=== PATIENT | male | born 1985 | race Caucasian/White ===

== ENCOUNTER → 2020-07-06 16:07 | Outpatient (CLI) | payer BC, SELFPAY ==
--- NOTE | ~2020-07-06 | MR_ITS ---
EXAMINATION: MR shoulder RT wo con DATE: 07/06/2020 17:20 INDICATION: Right shoulder pain. TECHNIQUE: Magnetic resonance imaging (MRI) of the right shoulder was performed without intravenous c ontrast. Sequences included axial PD-weighted FS FSE, coronal oblique PD-weighted FS FSE and T2-weigh rory FS FSE, and sagittal oblique T2-weighted FS FSE and T1-weighted FSE. COMPARISON: Right shoulder radiographs 06/27/2020 FINDINGS: Coracoacromial arch: The acromion undersurface is flat in morphology (type I). There is inferolateral tilt of the acromion . There is mild acromioclavicular joint osteoarthritis. There is mild subacromial/subdeltoid bursitis . Rotator cuff: There is mild supraspinatus and infraspinatus tendinopathy. Teres minor tendon is normal. Subscapular is tendon is normal. There is no asymmetric fatty atrophy of the rotator cuff muscle bellies. Biceps tendon and glenoid labrum: Biceps tendon is in bicipital groove. Intra-articular biceps tendon is normal. The glenoid labrum is normal. Fluid: There is no glenohumeral joint effusion. Bones/cartilage/other: Humeral cartilage is normal. Glenoid cartilage is normal. Partially visualized is edema in the pector della major muscle. Partially visualized is a tear of the pectoralis major tendon with 2.5 cm tendon g ap. IMPRESSION: 1. Partially visualized complete versus near-complete tear of right pectoralis major tendon with 2.5 cm tendon gap. Reviewed, dictated and finalized at location A. [employer]
== END ==
PROVIDERS: Visit Provider Orthopaedic Surgery
DX: M25.511 Pain in right shoulder (principal)
CPT/HCPCS: 73221